=== PATIENT | female | born 1975 | race Caucasian/White ===

== ENCOUNTER 2017-01-04 19:31 | Emergency (ER) | payer OTHER ==
[~2017-01-04] VITALS: Ht 162.6 cm; Wt 58.1 kg
[~2017-01-04 19:31] MED LIST: ACYC400T PO; METR-105 PO
--- NOTE | 2017-01-04 19:50 | NUR ---
PT WALED INTO ER C/O RIGHT EAR PAIN X1 WEEK. ALSO REQUESTING PAIN MEDICATION FOR LEFT LITTLE FINGER PAIN [id number]. ALSO C/O RASH ON NECK WHICH CHRONIC... PT ALERT, ORIENTED X 4, NO RESP DISTRESS NOTED OR REPORTED UPON ASSESSMENT. MD AT BEDSIDE..
[2017-01-04] MEDS ORDERED: NAPROXEN 500 MG TABLET PO ONE (20:15)
[2017-01-04] MEDS ORDERED: NAPROXEN 500 MG TABLET ONE (20:21)
[2017-01-04 20:35] VITALS: BP 131/97
== END 2017-01-04 20:36 | disposition home or self-care (01) ==
LOC: ER 19:31
DX: H92.01 Otalgia, right ear (principal); G89.29 Other chronic pain; M25.569 Pain in unspecified knee; F31.9 Bipolar disorder, unspecified; F10.20 Alcohol dependence, uncomplicated; F17.200 Nicotine dependence, unspecified, uncomplicated; Z86.19 Personal history of other infectious and parasitic diseases; Z59.0 Homelessness
CPT/HCPCS: A4663

== ENCOUNTER 2017-01-26 20:31 | Emergency (ER) | payer OTHER ==
[~2017-01-26] VITALS: Ht 162.6 cm; Wt 52.3 kg
[2017-01-26] MEDS ORDERED: TRAMADOL HCL 50 MG TABLET PO ONE (21:30)
[2017-01-26] MEDS ORDERED: LOPERAMIDE HCL 2 MG CAPSULE PO ONE (21:30)
[2017-01-26] MEDS ORDERED: TRAMADOL HCL 50 MG TABLET ONE (21:39)
[2017-01-26] MEDS ORDERED: LOPERAMIDE HCL 2 MG CAPSULE ONE (21:39)
[2017-01-26] MEDS ORDERED: FLUCONAZOLE 100 MG TABLET PO ONE (22:00)
--- NOTE | 2017-01-26 22:00 | NUR ---
Patient argumentative in room, demanding medications and treatments. Patient was given verbal instructions to follow up with a specialist to which she argued that she could not because she feels that her case is emergent despite education from staff.
--- NOTE | 2017-01-26 22:09 | NUR ---
Patient given written and verbal discharge instructions. Patient verbalizes understanding of instructions. Patient is ambulatory with steady gait. Refuses offer of assisted placement. Patient given list of available shelters in surrounding area.
[2017-01-26] MEDS ORDERED: FLUCONAZOLE 100 MG TABLET ONE (22:11)
== END 2017-01-26 22:15 | disposition home or self-care (01) ==
LOC: ER 20:33
DX: G89.29 Other chronic pain (principal); B37.9 Candidiasis, unspecified; M25.561 Pain in right knee; M25.562 Pain in left knee; M54.5 Low back pain; F10.20 Alcohol dependence, uncomplicated; F17.200 Nicotine dependence, unspecified, uncomplicated; Z59.0 Homelessness; Z86.19 Personal history of other infectious and parasitic diseases
CPT/HCPCS: 87210; 99284; 99406; A4663

== ENCOUNTER 2017-01-27 19:46 | Emergency (ER) | payer OTHER ==
--- NOTE | 2017-01-27 20:16 | NUR ---
CALLED FOR PT CAME IN AND THEN REFUSED TRIAGE
== END 2017-01-27 20:19 | disposition left against medical advice (07) ==
LOC: ER 19:51
DX: R10.2 Pelvic and perineal pain (principal); Z53.21 Procedure and treatment not carried out due to patient leaving prior to being seen by health care provider